=== PATIENT | male | born 1995 | race American Indian/Alaskan Native ===

== ENCOUNTER 2016-12-16 14:46 | Emergency (ER) | payer SELFPAY ==
[2016-12-16 15:01] VITALS: BP 129/83
--- NOTE | 2016-12-16 15:55 | Emergency Department Report ---
ED Male HPI - General Chief complaint: Urogenital-Male Stated complaint: ABD PAIN Time Seen by Provider: 12/16/16 15:50 Source: patient Mode of arrival: Ambulatory Limitations: No Limitations - History of Present Illness Initial comments: Patient is a 21-year-old male presents to ED complaining of pain with urination and penile discharge for the past 3 days. Patient states he had unprotected intercourse about a week ago a 3 days ago he started experiencing some creamy penile discharge with dysuria. He denies penile bleeding, scrotum pain scrotum swelling or any other problems - Related Data Previous Rx's Medication Instructions Recorded Last Taken Type Phenazopyridine [Pyridium] 200 mg PO BID #10 tab 12/16/16 Unknown Rx Allergies Allergy/AdvReac Type Severity Reaction Status Date / Time ibuprofen Allergy Hives Verified 12/16/16 14:57 ED Review of Systems ROS: Stated complaint: ABD PAIN Other details as noted in HPI Constitutional: denies: chills, fever Eyes: denies: eye pain, eye discharge, vision change ENT: denies: ear pain, throat pain Respiratory: denies: cough, shortness of breath, wheezing Cardiovascular: denies: chest pain, palpitations Endocrine: no symptoms reported Gastrointestinal: denies: abdominal pain, nausea, diarrhea Genitourinary: dysuria, discharge. denies: urgency, frequency, hematuria, testicular pain, testicular mass Musculoskeletal: denies: back pain, joint swelling, arthralgia Skin: denies: rash, lesions Neurological: denies: headache, weakness, paresthesias Psychiatric: denies: anxiety, depression Hematological/Lymphatic: denies: easy bleeding, easy bruising ED Past Medical Hx - Past Medical History Previous Medical History?: No - Surgical History Past Surgical History?: No - Social History Smoking Status: Never Smoker Substance Use Type: Marijuana - Medications Home Medications: Home Medications Medication Instructions Recorded Confirmed Last Taken Type Phenazopyridine [Pyridium] 200 mg PO BID #10 tab 12/16/16 Unknown Rx ED Physical Exam - General Limitations: No Limitations General appearance: alert, in no apparent distress - Head Head exam: Present: atraumatic, normocephalic - Eye Eye exam: Present: normal appearance - ENT ENT exam: Present: mucous membranes moist - Neck Neck exam: Present: normal inspection - Respiratory Respiratory exam: Present: normal lung sounds bilaterally. Absent: respiratory distress - Cardiovascular Cardiovascular Exam: Present: regular rate, normal rhythm. Absent: systolic murmur, diastolic murmur, rubs, gallop - GI/Abdominal GI/Abdominal exam: Present: soft, normal bowel sounds - Rectal Rectal exam: Present: deferred - exam: Present: normal inspection, urethral discharge. Absent: testicular tenderness, scrotal swelling External exam: Present: normal external exam. Absent: erythema, swelling - Extremities Exam Extremities exam: Present: normal inspection - Back Exam Back exam: Present: normal inspection - Neurological Exam Neurological exam: Present: alert, oriented X3 - Psychiatric Psychiatric exam: Present: normal affect, normal mood - Skin Skin exam: Present: warm, dry, intact, normal color. Absent: rash ED Course Vital Signs 12/16/16 14:58 Temperature 98.4 F Pulse Rate 84 Respiratory 16 Rate Blood Pressure 129/83 O2 Sat by Pulse 100 Oximetry ED Medical Decision Making - Medical Decision Making 21-year-old male presents with STD exposure. ED course: Analysis and gonorrhea and Chlamydia cultures obtained. Urinalysis positive for leukorrhea Patient received 250 mg of Rocephin, azithromycin 1 g, Flagyl 2 g. Discussed with patient possible STD due to exposure. Discussed with patient findings and treatment Discussed prophylaxis treatment patient is to abstain from sex 7-10 days as treatment. Discussed patient partner knowledge and treatment. Discussed the follow-up with the health department for further STD testing. Patient's alert and oriented times 3. Vital signs are normal patient is in no acute discharge. Patient will be discharged home with instructions. Critical care attestation.: If time is entered above; I have spent that time in minutes in the direct care of this critically ill patient, excluding procedure time. ED Disposition Clinical Impression: Exposure to sexually transmitted disease (STD), Dysuria Disposition: DC- TO HOME OR SELFCARE Is pt being admited?: No Does the pt Need Aspirin: No Condition: Stable Instructions: Sexually Transmitted Diseases (ED), Safe Sex (ED) Additional Instructions: You were treated in the ED prophylaxis for STDs. Following instructions as given. Prescriptions: Phenazopyridine [Pyridium] 200 mg PO BID #10 tab Referrals: PRIMARY CARE, [Primary Care Provider] - 3-5 Days [facility] [Outside] - 3-5 Days [facility] [Outside] - 3-[address] [facility] [Outside] - 3-5 Days Forms: Work/School Release Form(ED) Time of Disposition: 17:14
[2016-12-16 16:27] LABS: Bilirubin,Urine NEG (Negative); Blood,Urine NEG (Negative); Ketones,Urine NEG (Negative); Leukocyte Esterase,Urine LG (Negative); Mucus,Urine 3+ /HPF; Nitrite,Urine NEG (Negative); WBC,Urine > 182.0 /HPF (0.0-6.0)
[2016-12-16] MEDS ORDERED: ZITHROMAX PO ONE (16:51)
[2016-12-16] MEDS ORDERED: XYLOCAINE 1% MPF 5 mL INFILTRATI ONE (16:51)
[2016-12-16] MEDS ORDERED: ROCEPHIN IM ONE (16:51)
[2016-12-16] MEDS ORDERED: FLAGYL PO ONE (16:51)
== END 2016-12-16 17:13 | disposition home or self-care (01) ==
LOC: ED 14:46
DX: R30.0 Dysuria (principal); R36.9 Urethral discharge, unspecified; F12.10 Cannabis abuse, uncomplicated; Z20.2 Contact with and (suspected) exposure to infections with a predominantly sexual mode of transmission; Z88.6 Allergy status to analgesic agent
CPT/HCPCS: 81001; 87591; 96372; 99283; J0696

== ENCOUNTER 2016-12-28 23:43 | Emergency (ER) | payer SELFPAY ==
[2016-12-29 01:03] LABS: Basophils % (Auto) 1.3 % (0.0-1.8); Eosinophils % (Auto) 1.8 % (0.0-4.3); Hematocrit 40.3 % (35.5-45.6); Hemoglobin 14.2 gm/dl (11.8-15.2); Mean Corpuscular HGB Conc 35 % (32-34); Mean Corpuscular Hemoglobin 32 pg (28-32); Mean Corpuscular Volume 92 fl (84-94); Platelet Count 269 K/mm3 (140-440); Red Blood Count 4.38 M/mm3 (3.65-5.03); Red Cell Distribution Width 12.6 % (13.2-15.2); White Blood Count 9.2 K/mm3 (4.5-11.0)
[2016-12-29 01:42] LABS: Anion Gap 19 mmol/L; Blood Urea Nitrogen 12 mg/dL (9-20); Calcium 9.3 mg/dL (8.4-10.2); Carbon Dioxide 26 mmol/L (22-30); Glucose 86 mg/dL (75-100); Potassium 4.2 mmol/L (3.6-5.0); Sodium 141 mmol/L (137-145)
[2016-12-29 03:12] LABS: Bilirubin,Urine NEG (Negative); Blood,Urine NEG (Negative); Ketones,Urine TR mg/dL (Negative); Leukocyte Esterase,Urine NEG (Negative); Mucus,Urine 2+ /HPF; Nitrite,Urine NEG (Negative); Protein,Urine <15 mg/dL mg/dL (Negative)
--- NOTE | 2016-12-29 05:01 | XRay Report ---
FINAL REPORT EXAM: XR KNEE 3V LT HISTORY: limited ROM . tech note: pt was here 2 weeks ago and recieved treatment for symptoms of std. pt now has generalized weakness and difficulty walking COMPARISONS: None. FINDINGS: Three views left knee Anatomic alignment with preservation of joint spaces and smooth subchondral surfaces. A joint effusion is present. No periosteal reaction or erosion. IMPRESSION: Given history, the patient's joint effusion is concerning for infectious arthropathy. Joint aspiration is recommended. Dr. Brennan discussed findings with Dr. Menon at [phone] following the examination.
[2016-12-29] MEDS ORDERED: DILAUDID IV ONE ×4 (07:59→15:31)
[2016-12-29] MEDS ORDERED: ZOFRAN IV ONE ×2 (07:59→12:35)
[2016-12-29] MEDS ORDERED: XYLOCAINE 1%/ EPI 1:100,000 INFILTRATI ONE (08:43)
[2016-12-29] MEDS ORDERED: ROCEPHIN/NS 1 GM/50 ML 1 GM/50 ML BAG IV ONE (10:34)
--- NOTE | 2016-12-29 12:24 | Emergency Department Report ---
ED Extremity Problem HPI - General Chief complaint: Pain General Stated complaint: BODY PAIN Time Seen by Provider: 12/29/16 07:45 Source: patient Mode of arrival: Ambulatory Limitations: No Limitations - History of Present Illness Initial comments: 21-year-old male with no subcutaneous past medical history is asthma with complaints of left knee swelling and pain and lower back pain. Symptoms for approximately 10 days. Patient was here 2 weeks ago on December 16 for dysuria and penile discharge. UTI with positive and patient was appreciated treated with Rocephin, azithromycin, and Flagyl. Urethral cultures reviewed by me today and they were positive for gonorrhea. Patient reports that several days after his treatment he began to have. Joint symptoms described. No reports of fever or rash. He denies any exposure has not had sex since his treatment. Severity scale (0 -10): 7 - Related Data Previous Rx's Medication Instructions Recorded Last Taken Type Phenazopyridine [Pyridium] 200 mg PO BID #10 tab 12/16/16 Unknown Rx HYDROcodone/APAP 5-325 [[place] 1 each PO Q6HR PRN #20 tablet 12/29/16 Unknown Rx 5/325] Allergies Allergy/AdvReac Type Severity Reaction Status Date / Time ibuprofen Allergy Hives Verified 12/16/16 14:57 ED Review of Systems ROS: Stated complaint: BODY PAIN Other details as noted in HPI Comment: All other systems reviewed and negative Other: Constitutional: No fevers chills Eyes: No eye pain visual changes ENT: No ear pain or throat pain Neck: Denies pain Respiratory: Denies cough wheezing shortness of breath Cardiovascular: Denies chest pain, palpitations, syncope GI: Denies abdominal pain, nausea, vomiting, diarrhea : Denies dysuria, urinary frequency, or urgency Musculoskeletal: As per HPI Skin: Denies rash, lesions, erythema Neurologic: Denies headache, numbness, weakness Psychiatric: Denies suicidal ideation, hallucinations ED Past Medical Hx - Past Medical History Previous Medical History?: No - Surgical History Past Surgical History?: No - Social History Smoking Status: Never Smoker Substance Use Type: None - Medications Home Medications: Home Medications Medication Instructions Recorded Confirmed Last Taken Type Phenazopyridine [Pyridium] 200 mg PO BID #10 tab 12/16/16 Unknown Rx HYDROcodone/APAP 5-325 [[place] 1 each PO Q6HR PRN #20 tablet 12/29/16 Unknown Rx 5/325] ED Physical Exam - General Limitations: No Limitations - Other Other exam information: General: No limitations, patient is alert in no acute distress Head exam: Atraumatic, normocephalic Eyes exam: Normal appearance ENT: Moist mucous membrane, normal oropharynx Neck exam: Normal inspection, full range of motion Respiratory exam: Clear to auscultation bilateral, no wheezes, rales, crackles Cardiovascular: Normal rate and rhythm, normal heart sounds Abdomen: Soft, nondistended, and nontender, with normal bowel sounds, no rebound, or guarding Extremity: Patient is significant pain has limited left knee flexion secondary to pain. Positive palpable joint effusion, mild warmth, no erythema. Back: Normal Inspection, full range of motion, no tenderness Neurologic: Alert, oriented x3, cranial nerves intact, no motor or sensory deficit Psychiatric: normal affect, normal mood Skin: Warm, dry, intact ED Course Vital Signs 12/29/16 12/29/16 12/29/16 00:14 04:26 09:38 Temperature 97.8 F 98.6 F Pulse Rate 77 59 L Respiratory 16 18 18 Rate Blood Pressure 116/76 109/74 O2 Sat by Pulse 100 100 Oximetry - Reevaluation(s) Reevaluation #1: 12/29/16 13:25 he received Dilaudid and Zofran prior to arthrocentesis. After arthrocentesis ceftriaxone 1 g IV provided - Consultations Consultation #1: 12/29/16 13:46 Ortho not available here. Case discussed with Dr. Ortiz orthopedic surgeon sales relationship manager for [employer]. I discussed cell count, crystals, and Gram stain results. He agrees that unlikely cause Septic arthritis given a low WBC count. Agrees with cultures and follow up 12/29/16 15:02 - Bursa Procedures Consent Obtained: verbal consent Time Out Performed: Yes Indications: R/O septic bursitis Side of Body: left Site of Procedure: prepatellar bursa XRAY Obtained: other (effusion) Antisepsis Used: Povidone-Iodine1% Local Anesthetic Used: Lidocaine 1%, with Epi [place] of Anesthesia Used (mls): 5 Fluid Obtained (mls): 35 Fluid Type: other (yellow) Lidocaine Added to Medication: No Patient Tolerated Procedure: well Complications: none ED Medical Decision Making - Lab Data Result diagrams: 12/29/16 00:38 12/29/16 00:38 Lab Results 12/29/16 12/29/16 12/29/16 Range/Units 00:38 00:38 08:20 WBC 9.2 (4.5-11.0) K/mm3 RBC 4.38 (3.65-5.03) M/mm3 Hgb 14.2 (11.8-15.2) gm/dl Hct 40.3 (35.5-45.6) % MCV 92 (84-94) fl MCH 32 (28-32) pg MCHC 35 H (32-34) % RDW 12.6 L (13.2-15.2) % Plt Count 269 (140-440) K/mm3 Lymph % (Auto) 40.5 H (13.4-35.0) % [place] % (Auto) 8.0 H (0.0-7.3) % Eos % (Auto) 1.8 (0.0-4.3) % Baso % (Auto) 1.3 (0.0-1.8) % Lymph # 3.7 (1.2-5.4) K/mm3 [place] # 0.7 (0.0-0.8) K/mm3 Eos # 0.2 (0.0-0.4) K/mm3 Baso # 0.1 (0.0-0.1) K/mm3 Seg Neutrophils % 48.4 (40.0-70.0) % Seg Neutrophils # 4.4 (1.8-7.7) K/mm3 ESR 30 (0-20) mm/Hr Sodium 141 (137-145) mmol/L Potassium 4.2 (3.6-5.0) mmol/L Chloride 100.0 (98-107) mmol/L Carbon Dioxide 26 (22-30) mmol/L Anion Gap 19 mmol/L BUN 12 (9-20) mg/dL Creatinine 0.6 L (0.8-1.5) mg/dL Estimated GFR > 60 ml/min BUN/Creatinine Ratio 20.00 % Glucose 86 (75-100) mg/dL Calcium 9.3 (8.4-10.2) mg/dL Urine Color (Yellow) Urine Turbidity (Clear) Urine pH (5.0-7.0) Ur Specific [place] (1.003-1.030) Urine Protein (Negative) mg/dL Urine Glucose (UA) (Negative) mg/dL Urine Ketones (Negative) mg/dL Urine Blood (Negative) Urine Nitrite (Negative) Urine Bilirubin (Negative) Urine Urobilinogen (<2.0) mg/dL Ur Leukocyte Esterase (Negative) Urine WBC (Auto) (0.0-6.0) /HPF Urine RBC (Auto) (0.0-6.0) /HPF U Epithel Cells (Auto) (0-13.0) /HPF Urine Mucus /HPF Fluid Type Fluid Color Fluid Appearance Fluid WBC /mm3 Fluid RBC /mm3 Fluid Seg Neutrophils % Fluid Lymphocytes % Fluid Reactive Lymphs % Fluid Monocytes % Fluid Eosinophils % Fluid Basophils % Fluid Comment Synovial Crystals (NONE SEEN) 12/29/16 12/29/16 Range/Units 10:27 Unknown WBC (4.5-11.0) K/mm3 RBC (3.65-5.03) M/mm3 Hgb (11.8-15.2) gm/dl Hct (35.5-45.6) % MCV (84-94) fl MCH (28-32) pg MCHC (32-34) % RDW (13.2-15.2) % Plt Count (140-440) K/mm3 Lymph % (Auto) (13.4-35.0) % [place] % (Auto) (0.0-7.3) % Eos % (Auto) (0.0-4.3) % Baso % (Auto) (0.0-1.8) % Lymph # (1.2-5.4) K/mm3 [place] # (0.0-0.8) K/mm3 Eos # (0.0-0.4) K/mm3 Baso # (0.0-0.1) K/mm3 Seg Neutrophils % (40.0-70.0) % Seg Neutrophils # (1.8-7.7) K/mm3 ESR (0-20) mm/Hr Sodium (137-145) mmol/L Potassium (3.6-5.0) mmol/L Chloride (98-107) mmol/L Carbon Dioxide (22-30) mmol/L Anion Gap mmol/L BUN (9-20) mg/dL Creatinine (0.8-1.5) mg/dL Estimated GFR ml/min BUN/Creatinine Ratio % Glucose (75-100) mg/dL Calcium (8.4-10.2) mg/dL Urine Color Yellow (Yellow) Urine Turbidity Clear (Clear) Urine pH 6.0 (5.0-7.0) Ur Specific [place] 1.025 (1.003-1.030) Urine Protein <15 mg/dl (Negative) mg/dL Urine Glucose (UA) Neg (Negative) mg/dL Urine Ketones Tr (Negative) mg/dL Urine Blood Neg (Negative) Urine Nitrite Neg (Negative) Urine Bilirubin Neg (Negative) Urine Urobilinogen 2.0 (<2.0) mg/dL Ur Leukocyte Esterase Neg (Negative) Urine WBC (Auto) 8.0 H (0.0-6.0) /HPF Urine RBC (Auto) 1.0 (0.0-6.0) /HPF U Epithel Cells (Auto) < 1.0 (0-13.0) /HPF Urine Mucus 2+ /HPF Fluid Type Synovial Fluid Color Yellow Fluid Appearance Cloudy Fluid WBC 4325 /mm3 Fluid RBC 475 /mm3 Fluid Seg Neutrophils 40.0 % Fluid Lymphocytes 43.0 % Fluid Reactive Lymphs 0 % Fluid Monocytes 17.0 % Fluid Eosinophils 0 % Fluid Basophils 0 % Fluid Comment Diff performed Synovial Crystals Negative (NONE SEEN) - Radiology Data Radiology results: report reviewed (left knee x-ray: Positive joint effusion, no fracture, no periosteal reaction or erosion) - Medical Decision Making At this time patient does not have signs of septic arthritis based on cell count , and Gram stain of synovial fluid. Case was discussed with Dr. Ortiz orthopedics at [place] who is in agreement. Patient was treated home with pain medication orthopedic follow-up would be encouraged. Pending studies: Blood cultures, urine culture, gonorrhea Chlamydia, and synovial fluid culture Jovon wrap placed for support and crutches provided. - Differential Diagnosis gonococcal arthritis, inflammatory arthritis, infectious arthritis Critical Care Time: No Critical care attestation.: If time is entered above; I have spent that time in minutes in the direct care of this critically ill patient, excluding procedure time. ED Disposition Clinical Impression: Hx of acute gonococcal urethritis, Knee effusion, left Disposition: DC-01 TO HOME OR SELFCARE Is pt being admited?: No Does the pt Need Aspirin: No Condition: Stable Instructions: Knee Effusion (ED) Additional Instructions: At this time it does not appear to be a bacterial infection in your knee joint. Your cultures are pending. Please follow up with either orthopedic doctor provided. Return if symptoms worsen. Prescriptions: HYDROcodone/APAP 5-325 [[place] 5/325] 1 each PO Q6HR PRN #20 tablet PRN Reason: Pain Referrals: ASH CACERES MD [Staff Physician] - 3-5 Days IRA CADENA MD [Staff Physician] - 3-5 Days Time of Disposition: 14:46
[2016-12-29] MEDS ORDERED: BENADRYL IV ONE ×2 (12:35→15:32)
[2016-12-29 13:45] LABS: Basophils Body Fluid 0 %; Eosinophils Body Fluid 0 %; Reactive Lymph Body Fluid 0 %
[2016-12-29] MEDS ORDERED: XYLOCAINE 1%/ EPI 1:100,000 INFILTRATI NR (15:00)
[2016-12-29 15:55] VITALS: BP 120/72
== END 2016-12-29 15:53 | disposition home or self-care (01) ==
LOC: ED 23:43
DX: M25.462 Effusion, left knee (principal); Z88.6 Allergy status to analgesic agent; M54.5 Low back pain
CPT/HCPCS: 20610; 36415; 73562; 80048; 81001; 82947; 85025; 85048; 85652; 87040; 87086; 87116; 87205; 87591; 89051; 96365; 96375; 96376; 99284; J0696; J1170; J1200; J2405